=== PATIENT | male | born 1960 | race Caucasian/White ===

== ENCOUNTER 2019-10-03 01:34 | Observation (INO) | payer OTHER ==
[~2019-10-03] VITALS: Ht 193 cm; Wt 121.9 kg
[2019-10-03] MEDS ORDERED: BASAGLAR K100 UNIT/2 SC (02:46)
[2019-10-03] MEDS ORDERED: CLOP75 PO (02:46)
[2019-10-03] MEDS ORDERED: VENLAFAXINE HC225 MG PO (02:47)
[2019-10-03] MEDS ORDERED: LOSA25 PO (02:47)
[2019-10-03] MEDS ORDERED: DULERA 200 MCG/13 GM INH (02:48)
[2019-10-03] MEDS ORDERED: ALBU4 PO (02:48)
[2019-10-03 03:35] LABS: BASOPHILS ABSOLUTE AUTO 0.04 K/mm3 (0.00-0.23); BASOPHILS PERCENT AUTO 0 % (0-2); EOSINOPHILS ABSOLUTE AUTO 0.01 K/mm3 (0.00-0.68); EOSINOPHILS PERCENT AUTO 0 % (0-6); Hematocrit 49.7 % (37.0-53.0); Hemoglobin 15.7 g/dL (13.5-17.5); IMMATURE GRAN ABSOLUTE AUTO 0.07 K/mm3 (0.00-0.10); IMMATURE GRAN PERCENT AUTO 1 % (0-1); LYMPHOCYTES ABSOLUTE AUTO 0.78 K/mm3 (0.84-5.20); LYMPHOCYTES PERCENT AUTO 6 % (21-46); MONOCYTES ABSOLUTE AUTO 0.93 K/mm3 (0.16-1.47); MONOCYTES PERCENT AUTO 7 % (4-13); Mean Corpuscular HGB 27.6 pg (26.0-34.0); Mean Corpuscular HGB Conc 31.6 g/dL (31.5-36.5); Mean Corpuscular Volume 88 fL (80-100); Mean Platelet Volume 10.2 fL (9.1-12.4); NEUTROPHILS ABSOLUTE AUTO 11.56 K/mm3 (1.96-9.15); NEUTROPHILS PERCENT AUTO 86 % (41-73); Platelet Count 283 K/mm3 (150-400); RDW Coefficient Variation 15.4 % (11.7-14.2); RDW Standard Deviation 49.7 fL (35.1-46.3); Red Blood Cell Count 5.68 M/mm3 (4.30-5.90); White Blood Cell Count 13.39 K/mm3 (4.00-11.30)
[2019-10-03 03:48] LABS: Alanine Aminotransfer (ALT/SGP 25 U/L (12-78); Albumin/Globulin Ratio 0.6 (0.8-1.8); Alk Phos 197 U/L (50-136); Anion Gap 8 mmol/L (6-16); Aspartate Aminotrans (AST/SGOT 29 U/L (12-37); Bilirubin, Total 0.7 mg/dL (0.1-1.0); Blood Urea Nitrogen 19 mg/dL (8-24); Bun/Creatinine Ratio 20.6 (12.0-20.0); CO2, Blood 27 mmol/L (21-32); Calcium, Blood 8.6 mg/dL (8.5-10.1); Chloride, Blood 95 mmol/L (98-108); Creatinine, Blood 0.92 mg/dL (0.60-1.20); Globulin, Blood 5.2 g/dL (2.2-4.0); Glomerular Filtration Rate >60 (60-); Glucose, Blood 273 mg/dL (70-99); Potassium, Blood 3.8 mmol/L (3.5-5.5); Sodium, Blood 130 mmol/L (136-145); Total Protein, Blood 8.2 g/dL (6.4-8.2)
[2019-10-03 07:39] LABS: Source, Urine Clean Catch
[2019-10-03 07:42] LABS: Bilirubin, Urine Neg (Neg); Blood, Urine Neg (Neg); Glucose Qualitative, Urine Neg (Neg); Ketones, Urine Neg (Neg); Leukocyte Esterase, Urine Neg (Neg); Nitrite, Urine Neg (Neg); Protein, Urine 1+ (Neg); Urobilinogen, Urine NORM (Normal)
[2019-10-03 07:43] LABS: Appearance, Urine Clear (Clear); Color, Urine Yellow (P-Yellow)
[2019-10-03 07:52] LABS: U Amphetamine Screen DETECTED; U Barbituate Screen Not Detected; U Benzodiazapine Screen Not Detected; U Buprenorphine Screen Not Detected; U Cannabinoids Screen DETECTED; U Cocaine Screen Not Detected; U Methadone Screen Not Detected; U Methamphetamine Screen Not Detected; U Opiates Screen Not Detected; U Oxycodone Screen Not Detected; U Phencyclidine Screen Not Detected; U Propoxyphene Screen Not Detected
[2019-10-03 07:57] LABS: Influenza A Negative (NEGATIVE); Influenza B Negative (NEGATIVE)
[2019-10-03 08:21] LABS: Automated CSF WBC Count 0.539 K/mm3 (0-5); WBC Count, CSF 539 /mm3 (0-5)
[2019-10-03 08:22] LABS: Automated CSF WBC Count 0.829 K/mm3 (0-5); WBC Count, CSF 829 /mm3 (0-5)
[2019-10-03] MEDS ORDERED: CYCL10 PO (08:22)
[2019-10-03 08:33] LABS: Glucose, CSF 85 mg/dL (40-70)
[2019-10-03 08:41] LABS: Appearance, CSF Hazy (Clear); Color, CSF No Color (No Color)
[2019-10-03 08:42] LABS: RBC Count, CSF 47 /mm3 (0-0)
[2019-10-03 08:54] LABS: Appearance, CSF Hazy (Clear); Color, CSF No Color (No Color)
[2019-10-03 08:55] LABS: RBC Count, CSF 30 /mm3 (0-0)
[2019-10-03 09:15] LABS: Lymphocytes, CSF 6 % (40-80); Monocytes, CSF 2 % (15-45); Neutrophils, CSF 92 % (0-6)
[2019-10-03 09:28] LABS: Lymphocytes, CSF 2 % (40-80); Monocytes, CSF 3 % (15-45); Neutrophils, CSF 95 % (0-6)
[2019-10-03 09:44] LABS: Cryptococcus Neoformans/Gattii Not Detected (NOT DETECT); Enterovirus Not Detected (NOT DETECT); Escherichia Coli K1 Not Detected (NOT DETECT); Haemophilus Influenza Not Detected (NOT DETECT); Herpes Simplex Virus 1 Not Detected (NOT DETECT); Herpes Simplex Virus 2 Not Detected (NOT DETECT); Human Herpesvirus 6 Not Detected (NOT DETECT); Human Parechovirus Not Detected (NOT DETECT); Listeria Monocytogenes Not Detected (NOT DETECT); Neisseria Meningitidis Not Detected (NOT DETECT); Streptococcus Agalactiae Not Detected (NOT DETECT); Streptococcus Pneumoniae Not Detected (NOT DETECT); Varicella Zoster Virus Not Detected (NOT DETECT)
--- NOTE | 2019-10-03 14:17 | NUR ---
CALL TO DR YIN PT SCREAMING OUT IN PAIN, STATES IN BACK AND ACROSS SHOULDERS, CALLED WHO STATED HE WLD BE UP TO SEE PT.
[2019-10-03] MEDS ORDERED: AMPDEX10CR (14:25)
[2019-10-03] MEDS ORDERED: TRAM50 PO (15:49)
--- NOTE | 2019-10-03 17:07 | NUR ---
SHIFT SUMMARY/DC PT HAS HAD NO ACUTE CHANGES THIS SHIFT, MEDICATED PER DEC FOR PAIN, PT SLEPT FROM 1050 THRU 1405, PT THEN WOKE AND BEGAN YELLING OUT IN PAIN, CALLED MD WHO CAME TO SEE PT, NO NEW PAIN ORDERS REC. REVIEWED DC INSTRUCTIONS W/PT W/PARTNER AT BEDSIDE, BOTH VERBALIZED UNDERSTANDING, PARTNER @ BEDSIDE ASSISTING PT W/DRESSING @ THIS TIME.
== END 2019-10-03 19:15 | disposition home or self-care (01) ==
LOC: ER 01:34 → MEDS 01:35 → ER 06:19 → MEDS 06:19 → ER 08:06 → MEDS 08:13 → ENPENDDIS 15:27 → MEDS 19:15
PROVIDERS: Emergency Medicine; ADMIT Family Medicine
DX: R50.9 Fever, unspecified (principal); G47.419 Narcolepsy without cataplexy; J44.9 Chronic obstructive pulmonary disease, unspecified; E11.9 Type 2 diabetes mellitus without complications; M54.2 Cervicalgia; M25.519 Pain in unspecified shoulder; I11.0 Hypertensive heart disease with heart failure; I50.9 Heart failure, unspecified; E66.9 Obesity, unspecified; E87.1 Hypo-osmolality and hyponatremia; Z86.73 Personal history of transient ischemic attack (TIA), and cerebral infarction without residual deficits; Z79.4 Long term (current) use of insulin; Z87.891 Personal history of nicotine dependence; Z79.02 Long term (current) use of antithrombotics/antiplatelets; Z79.899 Other long term (current) drug therapy; Z85.810 Personal history of malignant neoplasm of tongue; D72.829 Elevated white blood cell count, unspecified; Z68.31 Body mass index [BMI] 31.0-31.9, adult
CPT/HCPCS: 36415; 62270; 70450; 70491; 71046; 80053; 82945; 82947; 83605; 84157; 85025; 87040; 87070; 87147; 87205; 87483; 87804; 89051; 96361-59; 96374-59; 96375-59; 96376-59; 99285-25; G0378; J0696; J1170; J1815; J1885; J3010; J7030; J7050; Q9967